=== PATIENT | female | born 1970 | race African-American/Black ===

== ENCOUNTER → 2022-06-21 09:47 | Outpatient (BNVA) | payer MEDICARE, MEDICAID, SELFPAY | PROVIDERS: Visit Provider Physician Assistant Surgical | DX: Z13.89 Encounter for screening for other disorder (principal) ==

== ENCOUNTER → 2022-06-27 14:09 | Outpatient (BNVA) | payer MEDICARE, MEDICAID, SELFPAY | PROVIDERS: PCP Internal Medicine; Visit Provider Physician Assistant Surgical | DX: E66.01 Morbid (severe) obesity due to excess calories (principal); Z68.42 Body mass index [BMI] 45.0-49.9, adult | CPT/HCPCS: 99202 ==

== ENCOUNTER 2024-08-05 13:25 | Outpatient (AMB) | payer MEDICARE, MEDICAID, SELFPAY ==
[2024-08-05 13:28] VITALS: BP 150/92; PULSE 65; O2SAT 98
--- NOTE | 2024-08-05 13:28 | A.OFFVIS_ITS ---
Vital Signs 08/05/24 13:28 Weight 298 lb 4.567 oz BP 150/92 H Blood Pressure Location Lt brachial Position Sitting Pulse 65 Pulse Source Pulse Oximeter Pulse Oximetry (%) 98 Oxygen Delivery Method Room Air Intake Visit Reasons: Obesity Intake Note: Patient present today for Obesity. Salesperson [employer] Required: No Accompanied by: Self / Same As Patient Allergies No Known Allergies Allergy (Verified 08/05/24 13:34) Medication List - Last Reconciled 08/05/24 by Car Quintana MD aripiprazole (Abilify) 10 mg PO DAILY omeprazole 20 mg PO DAILY HPI Comments Details: This is a 54-year-old black female sent to endocrinology for evaluation of obesity. P atient states lb wt gain over 60 lbs over past yr . She has tried diets of keto diet , Atkins . Exercising Zana -PHUONG . She has seen a cryolite recovery operator - has appt . She has not tried weight loss medications. she does have a history of hypertension and sleep apnea. There was no known history of hypothyroidism. . There was no history of diabetes. Wt gain occured after psychiatric medications . There is family hx of diabetes. Some increasaed hair growth on face. [facility] Surgical History No pertinent past surgical history Family History Mother Diabetes Father No problems noted. Social History Alcohol intake: never Patient Tobacco Use Status: Never used Tobacco Physical Exam Vital Signs: Last Vital Signs Pulse 65 08/05/24 13:28 BP 150/92 H 08/05/24 13:28 Pulse Ox 98 08/05/24 13:28 Oxygen Delivery Method Room Air 08/05/24 13:28 Assessment & Plan Assessment & Plan (1) Morbid obesity: Code(s): E66.01 - Morbid (severe) obesity due to excess calories Category: Medical Plan: This is a 54-year-old black female with a history of morbid obesity. there was no clear underlying endocrine etiology. Tthere is history of comorbidities of hypertension and sleep apnea . Plan is to check TSH and free T4. Will refer patient to cryolite recovery operator. Could consider use of pharmacologic agent like G LP 1 /GI P such as Zepbound if insurance would cover . after discussion with patient we decided to prescribe sheriff pay Zepbound vial and syringe 2.5 mg Q weekly. . Went over side effects of Zepbound including but not limited to nausea, vomiting rare risk of pancreatitis Orders: Orders Thyroid Stimulating Hormone Today E66.01 - Morbid (severe) obesity due to excess calories Free T4 (Free Thyroxine) Today E66.01 - Morbid (severe) obesity due to excess calories Referrals Nutrition/Dietitian Referral E66.01 - Morbid (severe) obesity due to excess calories Medications: New tirzepatide (weight loss) (Zepbound) [facility] [id number] 2.5 mg (0.5 mL) subcut QWEEK 4 weeks 2 mL 4RF Coding Level of Care Code New Pt Level 4 (03660) Diagnoses Morbid obesity E66.01
--- OUTSIDE RECORDS SUMMARY | 2024-08-05 16:31 | XMS_ITS | Encounter Summary ---
Author Organization [facility] Address [address] [place] [address] Care Team Providers Care Gis Specialist Name Role Phone Byron Irvin MD Primary Care Provider [phone] Reason for Visit * Reason Onset Date Comments Letter for School/Work 07/15/2024 Encounter Details Date Type Department Care Team (Late st Contact Info) Description 07/15/2024 [facility]phone [facility] [address] [place] [phone] Byron Irvin MD [address] [place] [id number] Letter for School/Work Social History Tobacco Use Types Packs/Day Years Used Date Smoking Tobacco: Never Smokeless Tobacco: Never Alcohol Use Standard Drinks/Week Comments Yes 0 (1 standard drink = 0.6 oz pur e alcohol) Comments Unknown Sex and Gender Information Value Date Recorded Sex Assigned at Not on file Legal Sex Female 10:51 PM EST Gender Identity Not on file Sexual Orientation Not on file documented as of this encounter Progress Notes * Alaina Spicer MA - 07/15/2024 10:02 AM EST Spoke to patient and she said she got a call from [employer] but she was confused, referral to endo in [facility]. Patient will call their office now. * Star Rogers - 07/15/2024 9:55 AM EST Pt would like a call back to go over last letter from Byron Irvin MD and questions regarding weight loss documented in this encounter Plan of Treatment Upcoming Encounters Date Type Department Care Team (Late st Contact Info) Description 11/19/2024 2:30 PM EDT Consult Bariatric Surgery - [place] [facility] [address] [place] [address] Romi Mitchell PA [address] [facility] [address] [place] [address] documented as of this encounter Visit Diagnoses Not on filedocumented in this encounter Care Teams Gis Specialist Relationship Specialty Start Date End Date Byron Irvin MD [address] [place] [id number] PCP - General Internal Medicine 12/21/16 documented as of this encounter
--- OUTSIDE RECORDS SUMMARY | 2024-08-05 16:31 | XMS_ITS | Clinical Summary ---
Author Organization [address] Building Address [address] [place] [phone] Phone Care Team Providers Care Water Resource Consultant Name Role Phone Byron Irvin MD Primary Care Provider [phone] Allergies Active Allergy Reactions Criticality Noted Date Comments Other 12/26/2016 Seasonal Allergies Post nasal drip , ??Watery eye's Medications amLODIPine (NORVASC) 5 mg tablet Take 1 tablet (5 mg total) by mouth 1 (one) time each day. 03/31/2024 Active ARIPiprazole (ABILIFY) 10 mg tablet Take 1 tablet (10 mg total) by mouth 1 (one) time each day. 09/26/2019 Active fexofenadine (NORM) 180 mg tablet Take 1 tablet (180 mg total) by mouth 1 (one) time each day. 10/17/2023 Active naproxen (NAPROSYN) 500 mg tablet Take 1 tablet (500 mg total) by mouth. 07/12/2023 Active omeprazole (PriLOSEC) [address] capsule Take 1 capsule (20 mg total) by mouth 1 (one) time each day. 90 each 05/23/2024 Active Active Problems Problem Noted Date Diagnosed Date HTN (hypertension) 09/20/2020 Iron deficiency anemia 09/10/2015 Allergic rhinitis due to allergen 11/04/2014 Morbid obesity 04/08/2010 Overview (05/26/2024): Cpx1:doing Zana Edil 3 x per week ; Has lost weight Positive PPD, treated 04/08/2010 Overview (05/26/2024): 1993- treated 9 months per pt cpx 04/08/10 : Chest xray ordered Sleep apnea 12/01/2008 Overview (05/26/2024): cpx 04/08/10 :CPAP-helps ; less daytime fatigue; 2018- after patient loss almost 50 lbs she did not need CPAP machine any longer Acid reflux 11/09/2008 Overview (05/26/2024): H.Pylori negative 11/12/08 cpx 04/08/10 :nexium working Bipolar affective disorder 08/04/2008 Overview (05/26/2024): Dr. Klarissa Colvin- no longer sees her New provide:Savannah Dumont ; Pt continues on abilify and topamax ; doing well Encounters Date Type Department Care Team Description 07/15/2024 Telephone Internal Medicine - [address] [place] [phone] Byron Irvin MD Letter for School/Work 07/02/2024 Telephone Internal Medicine - [address] [place] [phone] Byron Irvin MD Results 06/23/2024 4:30 PM EST Telemedicine Internal Medicine - [address] [place] [address] Byron Irvin MD Morbid obesity (CMS/HCC) (Primary Dx); Family history of diabetes mellitus (DM); Hypertension, unspecified type; Encounter for screening mammogram for malignant neoplasm of breast; Screen for colon cancer 05/20/2024 Telephone Internal Medicine - [address] [place] [address] Byron Irvin MD Weight Loss from Last 3 Months Immunizations Name Administration Dates Next Due Td Tetanus diptheria (Tdvax) 7yo and older 11/28 Tdap Tetanus diptheria acell ular pertussis (Boostrix; Adacel) 7yo and older 08/04/2008 Surgical History Surgery Date Site/Laterality Comments OTHER SURGICAL HISTORY PROCEDURE: DENIES PREVIOUS SURGERY Medical History Medical History Date Comments Bipolar affective disorder ([facility]) 08/04/2008 DX:Bipolar affective disorder ([facility]) Acid reflux 11/09/2008 DX:Acid reflux; COMMENT: H.Pylori negative 11/12/08 cpx 04/08/10 :nexium working Allergic rhinitis due to allergen 11/04/2014 DX:Allergic rhinitis due to allergen Iron deficiency anemia 09/10/2015 DX:Iron d eficiency anemia Positive PPD, treated 04/08/2010 DX:Positiv e PPD, treated; COMMENT: 1993- treated 9 months per pt cpx 04/08/10 : Chest xray ordered Sleep apnea 12/01/2008 DX:Sleep apnea; COMMENT: cpx 04/08/10 :CPAP-helps ; less daytime fatigue Morbid obesity with BMI of 4 5.0-49.9, adult ([facility]) 04/08/2010 DX:Morbid obesity with BMI o f 45.0-49.9, adult ([facility]); COMMENT: Cpx1:doing Zana Edil 3 x per week ; Has lost weight Family History Medical History Relation Name Comments Mental illness Father Diabetes Maternal Grandfather Lung cancer Maternal Grandfather Diabetes Maternal Grandmother Lung cancer Maternal Grandmother Dementia Mother Diabetes Mother Breast cancer Neg Hx Relation Name Status Comments Father healthy Maternal Grandfather Maternal Grandmother [place] in h er 70's Mother Alive dm, Paternal Grandfather Paternal Grandmother Social History Tobacco Use Types Packs/Day Years Used Date Smoking Tobacco: Never Smokeless Tobacco: Never Alcohol Use Standard Drinks/Week Comments Yes 0 (1 standard drink = 0.6 oz pur e alcohol) Comments Unknown Sex and Gender Information Value Date Recorded Sex Assigned at Not on file Legal Sex Female 10:51 PM EST Gender Identity Not on file Sexual Orientation Not on file Obstetrics History Last Filed Vital Signs Vital Sign Reading Time Taken Comments Blood Pressure 138/101 10/17/2023 9:34 AM EDT Pulse 85 10/17/2023 9:34 AM EDT Temperature - - Respiratory Rate - - Oxygen Saturation - - Inhaled Oxygen Concentration - - Weight 132 kg (291 lb 4.8 oz) 08/27/2023 10:14 A M EDT Height 167.6 cm (5' 6 ) 08/27/2023 10:14 AM EDT Body Mass Index 47.02 08/27/2023 10:14 AM EDT Plan of Treatment Upcoming Encounters Date Type Department Care Team (Late st Contact Info) Description 11/19/2024 2:30 PM EDT Consult Bariatric Surgery - [place] [facility] [address] [place] [address] Romi Mitchell PA [address] [facility] [address] [place] [address] Health Maintenance Due Date Last Done Comments Hepatitis B Vaccines (1 of 3 - 19+ 3-dose series) 1991 Colorectal Cancer Screening: Colonoscopy 05/20/2022 Depression Screening 05/20/2022 HIV Screening 05/20/2022 Medicare Annual Wellness Visit 05/20/2022 Social Influencers of Health Screening 05/20/2022 Pneumococcal Vaccine: 50+ Years (1 of 1 - PCV) 2022 Zoster Vaccines (1 of 2) 2022 COVID-19 Vaccine (5 - season) 2024 07/10/2022, 05/19/2021, 10/04/2020, Additional history exists Influenza Vaccine (#1) 2024 Breast Cancer Screening 09/05/2024 09/06/19 23, 08/29/2021, 08/23/2020, Additional history exists Hypertension/CHF/CAD Annual BMP Blood Test 06/27/2025 06/27/2024, 08/28/2023 Cervical Cancer Screening: HPV 08/21/2028 08/22/2023 DTaP,Tdap,and Td Vaccines (3 - Td or Tdap) 11/28/2028 11/28/2018, 08/04/2008 Cholesterol Screening (Lipid Panel) 06/27/2029 06/27/2024, 08/28/2023 Hepatitis C Screening Completed 11/03/2022 HIB Vaccines Aged Out No longer eligi ble based on patient's age to complete this topic HPV Vaccines Aged Out No longer eligi ble based on patient's age to complete this topic Hepatitis A Vaccines Aged Out No long er eligible based on patient's age to complete this topic IPV Vaccines Aged Out No longer eligi ble based on patient's age to complete this topic MMR Vaccines Aged Out No longer eligi ble based on patient's age to complete this topic Meningococcal ACWY Vaccine Aged Out N o longer eligible based on patient's age to complete this topic Meningococcal B Vacine Aged Out No lo nger eligible based on patient's age to complete this topic Pneumococcal Vaccine: Pediatrics (0 to 5 Years) and At-Risk Patients (6 to 64 Years) Aged Out No longer eligible based on patient's age to complete this topic RSV Immunization Patients Under 20 months Aged Out No longer eligible based on patient's age to complete this topic Varicella Vaccines Aged Out No longer eligible based on patient's age to complete this topic Procedures Procedure Name Priority Date/Time Associated Diagnosis Comments BASIC METABOLIC PANEL Routine 06/27/2024 9:12 AM EST Hypertension, unspecified type LIPID PANEL WITH REFLEX TO DIRECT LDL Routine 06/27/2024 9:12 AM EST Hypertension, unspecified type HEMOGLOBIN A1C Routine 06/27/2024 9:12 AM EST Family history of diabetes mellitus (DM) HPV Routine 08/22/2023 HEPATITIS C SCREENING Routine 11/03/2022 SCREENING MAMMOGRAPHY BI 2-VIEW BREAST INC CAD Routine 09/05/2022 10:09 AM EDT Encounter for screening mammogram for malignant neoplasm of breast from Last 3 Months or Most Recently Relevant to Health Maintenance Results * (ABNORMAL) Lipid panel with reflex to direct LDL (06/27/2024 9:12 AM EST) Cholesterol 184 0 - 200 mg/dL LAB CHEMISTRY METHOD 06/27/2024 2:18 PM EST [facility] Triglycerides 46 0 - 150 mg/dL LAB CHEMISTRY METHOD 06/27/2024 2:18 PM EST [facility] HDL 59 >=40 mg/dL LAB CHEMISTRY METHOD 06/27/2024 2:18 PM [facility] LDL Calculated 116(H) 0 - 100 mg/dL LAB CHEMISTRY METHOD 06/27/2024 2:18 PM [facility] VLDL Cholesterol Sylvain 9.2 mg/dL LAB CHEMISTRY METHOD 06/27/2024 2:18 PM [facility] Non HDL Chol. (LDL+VLDL) 125 <145 mg/dL LAB CHEMISTRY METHOD 06/27/2024 2:18 PM [facility] Chol/HDL Ratio 3.1 0.0 - 4.4 LAB CHEMISTRY METHOD 06/27/2024 2:18 PM [facility] Blood Venous blood specimen / Unknown Venipuncture / Unknown 06/27/2024 9:12 AM EST 06/27/2024 9:12 AM EST us Byron Irvin MD LAB BLOOD ORDERABLES Sherley l Result Performing Organization Address City/[facility]/ZIP Co de Phone Number [facility] [address] [place] [address], [place] [phone] * Hemoglobin A1c (06/27/2024 9:12 AM EST) Hemoglobin A1C 5.7 <6.5 % LAB CHEMISTRY METHOD 06/27/2024 1:40 PM [facility] Mean Bld Glu Estim. 117 mg/dL LAB CHEMISTRY METHOD 06/27/2024 1:40 PM EST [facility] Blood Venous blood specimen / Unknown Venipuncture / Unknown 06/27/2024 9:12 AM EST 06/27/2024 9:12 AM EST us Byron Irvin MD LAB BLOOD ORDERABLES Sherley l Result [facility] [address] [place] [address], * Basic metabolic panel (06/27/2024 9:12 AM EST) Sodium 140 133 - 145 mmol/L LAB CHEMISTRY METHOD 06/27/2024 2:14 PM EST [facility] Potassium 4.3 3.5 - 5.5 mmol/L LAB CHEMISTRY METHOD 06/27/2024 2:14 PM [facility] Chloride 108 96 - 110 mmol/L LAB CHEMISTRY METHOD 06/27/2024 2:14 PM [facility] CO2 27 21 - 32 mmol/L LAB CHEMISTRY METHOD 06/27/2024 2:14 PM [facility] Anion Gap 5 3 - 11 LAB CHEMISTRY METHOD 06/27/2024 2:14 PM [facility] Glucose 93 70 - 100 mg/dL LAB CHEMISTRY METHOD 06/27/2024 2:14 PM [facility] BUN 13 5 - 25 mg/dL LAB CHEMISTRY METHOD 06/27/2024 2:14 PM [facility] Creatinine 0.87 0.50 - 1.10 mg/dL LAB CHEMISTRY METHOD 06/27/2024 2:14 PM [facility] eGFR 80 >=60 mL/min/1. 73m2 LAB CHEMISTRY METHOD 06/27/2024 2:14 PM [facility] Comment:Calculation based on the??Chronic Kidney Disease Epidemiology Collaboration (CKD-EPI) equation refit??without adjustment for race. BUN/Creatinine Ratio 14.9 LAB CHEMISTRY METHOD 06/27/2024 2:14 PM [facility] Calcium 9.2 8.5 - 10.5 mg/dL LAB CHEMISTRY METHOD 06/27/2024 2:14 PM [facility] Blood Venous blood specimen / Unknown Venipuncture / Unknown 06/27/2024 9:12 AM EST 06/27/2024 9:12 AM EST Byron Irvin MD LAB BLOOD ORDERABLES Sherley jah Result [facility] [address] [place] [address], * Cervical Cancer Screening: HPV (08/22/2023) Cervical Cancer Screening: HPV Negative, Abstracted Historical Provider HEALTH MAINTENANCE Final Result * Hepatitis C Screening (11/03/2022) Pathologist [facility] Hepatitis C Screening Abstracted Historical Provider HEALTH MAINTENANCE Final Result * SCREENING MAMMOGRAPHY BI 2-VIEW BREAST INC CAD (09/05/2022 10:09 AM EDT) Anatomical Region Laterality Modality Radiographic Laverne ging 08/29/2021 9:28 AM EDT Narrative 09/05/2022 7:13 PM EDT This is a summary report. The complete report is available in the patient's medical record. If you cannot access the medical record, please contact the sending organization for a detailed fax or copy. Exam: Screening mammogram Findings: Digital bilateral full-field screening mammography is performed with tomosynthesis and interpreted with the aid of computer-aided detection. ??Comparison is made with 08/29/2021 and as far back as 04/19/2018. Breast parenchyma is heterogeneously dense, limiting mammographic sensitivity. ??No new suspicious mass, architectural distortion, or suspicious calcifications. Impression: No mammographic evidence of malignancy. BI-RADS 1 - negative Procedure Note Radha Kyle MD - 07/16/2023 This is a summary report. The complete report is available in thepatient's medical record. If you cannot access the medical record, pleasecontact the sending organization for a detailed fax or copy. Exam: Screening mammogram Findings: Digital bilateral full-field screening mammography is performedwith tomosynthesis and interpreted with the aid of computer-aideddetection. Comparison is made with 08/29/2021 and as far back as106/19/2017. Breast parenchyma is heterogeneously dense, limiting mammographicsensitivity. No new suspicious mass, architectural distortion, orsuspicious calcifications. Impression: No mammographic evidence of malignancy. BI-RADS 1 - negative Byron Irvin MD IMG XR PROCEDURES Final R esult from Last 3 Months or Most Recently Relevant to Health Maintenance Insurance MEDICAID - [place] Care Teams Water Resource Consultant Relationship Specialty Start Date End Date Byron Irvin MD [address] [place] [phone] PCP - General Internal Medicine 12/21/16
--- OUTSIDE RECORDS SUMMARY | 2024-08-05 16:31 | XMS_ITS | Clinical Summary ---
Author Organization [facility] Address [address] [place] [address] Care Team Providers Care Supervisor Webbing Name Role Phone Unavailable Primary Care Provider Unavailabl e Social History Tobacco Use Types Packs/Day Years Used Date Smoking Tobacco: Never Assessed Sex and Gender Information Value Date Recorded Sex Assigned at Not on file Gender Identity Not on file Sexual Orientation Not on file Plan of Treatment Health Maintenance Due Date Last Done Comments Hepatitis C Virus Screening 1972 HIV Screening 1985 DTaP/Tdap/Td Vaccines (1 - Tdap) 1991 Hepatitis B Vaccines (1 of 3 - 19+ 3-dose series) 1991 Pneumococcal Vaccines 50+ (1 of 1 - PCV) 2022 Zoster (Shingles) Vaccine (1 of 2) 2022 COVID-19 Vaccine ( - 2023-2 5 season) 2024 Pneumococcal Vaccine: Pediat carissa (0-5 Years) and At-Risk Patients (6 to 49 Years) Aged Out No longer eligible b ased on patient's age to complete this topic
== END 2024-08-05 14:16 | disposition home or self-care (01) ==
PROVIDERS: PCP Internal Medicine; Visit Provider Internal Medicine Endocrinology, Diabetes & Metabolism
DX: E66.01 Morbid (severe) obesity due to excess calories (principal)
CPT/HCPCS: 99204

== ENCOUNTER → 2024-08-05 13:25 | Outpatient (BNVA) | payer MEDICARE, MEDICAID, SELFPAY | PROVIDERS: PCP Internal Medicine; Visit Provider Internal Medicine Endocrinology, Diabetes & Metabolism | DX: E66.01 Morbid (severe) obesity due to excess calories (principal) | CPT/HCPCS: 99202 ==

== ENCOUNTER 2024-10-09 16:19 | Outpatient (AMB) | payer MEDICARE, MEDICAID, SELFPAY ==
[2024-10-09 16:20] VITALS: BP 142/90; PULSE 61; O2SAT 95; BMI 48.7
--- NOTE | 2024-10-09 16:20 | MHC.OFFVIS ---
Vital Signs 10/09/24 16:20 Height 5 ft 6 in Weight 302 lb 0.533 oz BMI 48.7 BP 142/90 H Blood Pressure Location Rt brachial Position Sitting Pulse 61 Pulse Source Pulse Oximeter Pulse Oximetry (%) 95 Oxygen Delivery Method Room Air Intake Visit Reasons: Obesity Intake Note: Patient present today to [facility] for Weight Management Jack Winder Required: No Accompanied by: Self / Same As Patient Allergies No Known Allergies Allergy (Verified 10/09/24 16:21) HPI Comments Details: This is a 54-year-old black female sent to endocrinology for evaluation of obesity. This is a follow up visit. 60 pound weight gain over a year. She has tried diets of keto diet,Atkins . Exercises regularly TaiBO Has seen serologist in the past. Has not tried weight loss medication. Has a history of hypertension and sleep apnea. There was no history of diabetes or hypothyroidism. There is a family history of diabetes. She does have excess hair growth on the face. lost 30 pounds in 3 months going through class and had prepared meals, had gone from 22 to size 14 plans to join gym with friend pool 3/4 3 times per week eating healthier: no fried foods eats chicken/salads/ fresh fruit needs to stay away from soda 2 per day Biometrics Analyst [facility] Surgical History No pertinent past surgical history Family History Mother Diabetes Father No problems noted. Social History Alcohol intake: never Patient Tobacco Use Status: Never used Tobacco Physical Exam Vital Signs: Last Vital Signs Pulse 61 10/09/24 16:20 BP 142/90 H 10/09/24 16:20 Pulse Ox 95 10/09/24 16:20 Oxygen Delivery Method Room Air 10/09/24 16:20 BMI result Body Mass Index 48.7 Const Other: Obese female. Absence of acromegalic features. Neck exam reveals nl size thyroid about 15 gms. No thyroid nodules palpable. Heart S1 S2, Reg R/R. No M/R G. Skin exam reveals absence of vitiligo or acanthosis nigricans. Assessment & Plan Assessment & Plan (1) Morbid obesity: Code(s): E66.01 - Morbid (severe) obesity due to excess calories Category: Medical Plan: This is a 54-year-old black female with a history of morbid obesity. there was no clear underlying endocrine etiology. There is history of comorbidities of hypertension and sleep apnea She would benefit from starting Zepbound. Side effects of GLP-1 agonist were reviewed: Nausea, vomiting, diarrhea, headache, dehydration or low blood sugar. Rare acute kidney injury which can result from dehydration. Pancreatitis and gallstones. Contraindicated in MEN or family history of thyroid medullary cancer. Recommend that she see Belinda Arellano RD in our office. Continue regular exercise. Consider purchased of the behavioral modification weight loss book entitled the learn method for weight control. Have blood work to screen for thyroid Disorder Medications: Refilled tirzepatide (weight loss) (Zepbound) [facility] [id number] 2.5 mg (0.5 mL) subcut QWEEK 2 mL 4RF 4 weeks Coding Level of Care Code Est Pt Level 3 (47024) Complex EM visit Add On G2211 Diagnoses Morbid obesity E66.01 Time Spent (min) 30 Comment Time spent reviewing labs/provider notes, face to face, chart doc
--- OUTSIDE RECORDS SUMMARY | 2024-10-09 17:33 | XMS_ITS | Clinical Summary ---
Author Organization [facility] Address [address] [place] [address] Care Team Providers Care Icer Air Conditioning Name Role Phone Unavailable Primary Care Provider Unavailabl e Social History Tobacco Use Types Packs/Day Years Used Date Smoking Tobacco: Never Assessed Comments Unknown Sex and Gender Information Value Date Recorded Sex Assigned at Not on file Legal Sex Female 3:10 PM EDT Gender Identity Not on file Sexual Orientation Not on file Plan of Treatment Health Maintenance Due Date Last Done Comments Hepatitis C Virus Screening 1972 HIV Screening 1985 DTaP/Tdap/Td Vaccines (1 - Tdap) 1991 Hepatitis B Vaccines (1 of 3 - 19+ 3-dose series) 05/11 Pneumococcal Vaccines 50+ (1 of 1 - PCV) 2022 Zoster (Shingles) Vaccine (1 of 2) 2022 COVID-19 Vaccine (1 - season) 2024
--- OUTSIDE RECORDS SUMMARY | 2024-10-09 17:33 | XMS_ITS | Clinical Summary ---
Author Organization [address] Building Address [address] [place] [phone] Phone Care Team Providers Care Technical Services Coordinator Name Role Phone Byron Irvin MD Primary Care Provider [phone] Allergies Active Allergy Reactions Criticality Noted Date [...] (500 mg total) by mouth. 07/12/2023 Active Active Problems Problem Noted Date Diagnosed Date HTN (hypertension) 09/20/2020 Iron deficiency anemia 09/10/2015 Allergic rhinitis due to allergen 11/04/2014 Morbid obesity (CMS/HCC V24, CMS/HCC V28) 2009 Overview (05/26/2024): Cpx1:doing Zana Edil 3 x [...] cpx 04/08/10 :nexium working Bipolar affective disorder ([facility] V24, [facility] V28) 08/04/2008 Overview (05/26/2024): Dr. Klarissa Colvin- no longer sees her New provide:Savannah Dumont ; Pt continues on abilify and topamax ; doing well Encounters Date Type Department Care Team Description 07/15/2024 Telephone Internal Medicine - [facility] [address] [place] [id number] Byron Irvin MD Letter for School/Work from Last 3 Months Immunizations Name Administration Dates Next Due Td Tetanus diptheria (Tdvax) 7yo and older 11/28 Tdap Tetanus diptheria acell ular pertussis (Boostrix; Adacel) 7yo and older 08/04/2008 Surgical History Surgery Date Site/Laterality Comments OTHER SURGICAL HISTORY PROCEDURE: DENIES PREVIOUS SURGERY Medical History Medical History Date Comments Bipolar affective disorder ( [facility] V24, [facility] V28) 08/04/2008 DX:Bipolar affective disorde r ([facility]) Acid reflux 11/09/2008 DX:Acid reflux; COMMENT: H.Pylori [...] obesity with BMI of 4 5.0-49.9, adult ([facility] V24, [facility] V28) 04/08/2010 DX:Morbid obesity wit h BMI of 45.0-49.9, adult ([facility]); COMMENT: Cpx1:doing Zana Edil 3 x per week ; Has lost weight Family History Medical History Relation Name Comments Mental illness Father Diabetes Maternal Grandfather Lung cancer Maternal Grandfather Diabetes Maternal Grandmother Lung cancer Maternal Grandmother Dementia Mother Diabetes Mother Breast cancer Neg Hx Relation Name Status Comments Father healthy Maternal Grandfather Maternal Grandmother [place] in [place] 70's Mother Alive dm, [...] 2:30 PM EDT Consult Bariatric Surgery - [place] [address] [facility] [address] [place] [id number] Romi Mitchell PA [address] [facility] [address] [place] [address] Health Maintenance Due Date Last Done Comments [...] 2024 07/10/2022, 05/19/2021, 10/04/2020, Additional history exists Breast Cancer Screening 09/05/2024 09/06/19, 08/29/2021, 08/23/2020, Additional history exists Influenza Vaccine (Season Ended) 2025 Hypertension/CHF/CAD Annual BMP Blood Test 06/27/2025 06/27/2024, [...] age to complete this topic Meningococcal B Vaccine Aged Out No l onger eligible based on patient's age to complete [...] 06/27/2024 9:12 AM EST Hypertension, unspecified type HM HPV Routine 08/22/2023 HEPATITIS C SCREENING Routine [...] mg/dL LAB CHEMISTRY METHOD 06/27/2024 2:18 PM [facility] Triglycerides 46 0 - 150 mg/dL LAB CHEMISTRY METHOD 06/27/2024 2:18 PM [facility] HDL 59 >=40 mg/dL LAB CHEMISTRY METHOD 06/27/2024 2:18 PM [facility] LDL Calculated 116(H) 0 - 100 mg/dL LAB CHEMISTRY METHOD 06/27/2024 2:18 PM [facility] VLDL Cholesterol Sylvain 9.2 mg/dL LAB CHEMISTRY METHOD 06/27/2024 2:18 PM [facility] Non HDL Chol. (LDL+VLDL) 125 <145 mg/dL LAB CHEMISTRY METHOD 06/27/2024 2:18 PM [facility] Chol/HDL Ratio 3.1 0.0 - 4.4 LAB CHEMISTRY METHOD 06/27/2024 2:18 PM [facility] Blood Venous blood specimen / Unknown Venipuncture / Unknown 06/27/2024 9:12 AM EST 06/27/2024 9:12 AM EST Byron Irvin MD LAB BLOOD ORDERABLES Sherley tyson Result [facility] [address] [place] [address], [place] [phone] * Basic metabolic panel (06/27/2024 9:12 AM EST) Sodium 140 133 - 145 mmol/L LAB CHEMISTRY METHOD 06/27/2024 2:14 PM [facility] Potassium 4.3 3.5 - 5.5 mmol/L LAB CHEMISTRY METHOD 06/27/2024 2:14 PM [facility] Chloride 108 96 - 110 mmol/L LAB CHEMISTRY METHOD 06/27/2024 2:14 PM [facility] CO2 27 21 - 32 mmol/L LAB CHEMISTRY METHOD 06/27/2024 2:14 PM [facility] Anion Gap 5 3 - 11 LAB CHEMISTRY METHOD 06/27/2024 2:14 PM [facility] Glucose 93 70 - 100 mg/dL LAB CHEMISTRY METHOD 06/27/2024 2:14 PM [facility] BUN 13 5 - 25 mg/dL LAB CHEMISTRY METHOD 06/27/2024 2:14 PM [facility] Creatinine 0.87 0.50 - 1.10 mg/dL LAB CHEMISTRY METHOD 06/27/2024 2:14 PM [facility] eGFR 80 >=60 mL/min/1. 73m2 LAB CHEMISTRY METHOD 06/27/2024 2:14 PM [facility] Comment:Calculation based on the??Chronic Kidney Disease Epidemiology Collaboration (CKD-EPI) equation refit??without adjustment for race. BUN/Creatinine Ratio 14.9 LAB CHEMISTRY METHOD 06/27/2024 2:14 PM [facility] Calcium 9.2 8.5 - 10.5 mg/dL LAB CHEMISTRY METHOD 06/27/2024 2:14 PM EST [facility] Blood Venous blood specimen / Unknown Venipuncture / Unknown 06/27/2024 9:12 AM EST 06/27/2024 9:12 AM EST Byron Irvin MD LAB BLOOD ORDERABLES Sherley l Result [facility] [address] [place] [address], [place] [phone] * Cervical Cancer Screening: HPV (08/22/2023) Pathologist [facility] Cervical Cancer Screening: HPV Negative, Abstracted Historical Provider HEALTH MAINTENANCE Final Result * Hepatitis C Screening (11/03/2022) Pathologist [facility] Hepatitis C Screening Abstracted Historical Provider HEALTH [...] made with 08/29/2021 and as far back 04/19/2018. Breast parenchyma is heterogeneously dense, limiting mammographicsensitivity. No new suspicious mass, architectural distortion, orsuspicious calcifications. Impression: No mammographic evidence of malignancy. BI-RADS 1 - negative Byron Irvin MD IMG XR PROCEDURES Final R esult from Last 3 Months or Most Recently Relevant to Health Maintenance Insurance MEDICAID - [place] Care Teams Technical Services Coordinator Relationship Specialty Start Date End Date Byron Irvin MD [address] [place] [id number] PCP - General Internal Medicine 12/21/16
== END 2024-10-09 16:52 | disposition home or self-care (01) ==
LOC: HO.ENCR 16:20
PROVIDERS: PCP Internal Medicine; Visit Provider Nurse Practitioner Adult Health
DX: E66.01 Morbid (severe) obesity due to excess calories (principal)
CPT/HCPCS: 99213; G2211

== ENCOUNTER → 2024-10-09 16:19 | Outpatient (BNVA) | payer MEDICARE, MEDICAID, SELFPAY | PROVIDERS: PCP Internal Medicine; Visit Provider Nurse Practitioner Adult Health | DX: E66.01 Morbid (severe) obesity due to excess calories (principal); Z68.42 Body mass index [BMI] 45.0-49.9, adult | CPT/HCPCS: 99212 ==